=== PATIENT | female | born 1990 | race African-American/Black ===

== ENCOUNTER 2023-01-22 16:33 | Emergency (ER) | payer OTHER, SELFPAY | END 2023-01-22 18:17 | disposition home or self-care (01) | LOC: BURERS 16:33 | DX: S02.651A Fracture of angle of right mandible, initial encounter for closed fracture (principal); F17.200 Nicotine dependence, unspecified, uncomplicated; Y04.0XXA Assault by unarmed brawl or fight, initial encounter | CPT/HCPCS: 70486 ==